=== PATIENT | female | born 1955 | race Caucasian/White ===

== ENCOUNTER 2023-05-08 10:02 | Outpatient (CLI) | payer OTHER, SELFPAY ==
--- NOTE | 2023-05-08 10:12 | ECG_ITS ---
Measurements Intervals [place] Rate: 70 P: 54 [place]: 173 QRS: 47 QRSD: 81 T: 45 QT: 365 QTc: 395 Interpretive Statements SINUS RHYTHM BASELINE ARTIFACT LOW QRS VOLTAGE IN PRECORDIAL LEADS [QRS DEFLECTION < 1.0 mV IN CHEST LEADS] BORDERLINE ECG NO PREVIOUS ECG AVAILABLE FOR COMPARISON Electronically Signed On 05-08-2023 17:02:20 CDT by Matteo De Los Santos M.D.
[2023-05-08 11:25] LABS: Anion Gap 5 mmol/L (8-16); Blood Urea Nitrogen 16 mg/dL (7-17); Calcium 9.3 mg/dL (8.4-10.2); Carbon Dioxide 31 mmol/L (22-30); Chloride 99 mmol/L (98-107); Estimated Glomerular Filt Rate > 60; Glucose 87 mg/dL (65-110); Potassium 3.6 mmol/L (3.4-5.0); Sodium 135 mmol/L (137-145)
== END 2023-05-08 10:03 | disposition home or self-care (01) ==
LOC: ANHSURGERY 10:07
PROVIDERS: Anesthesiology; PCP Internal Medicine; Visit Provider Orthopaedic Surgery
DX: I10 Essential (primary) hypertension (principal); Z01.818 Encounter for other preprocedural examination
CPT/HCPCS: 36415; 80048; 93005

== ENCOUNTER 2023-05-11 02:37 | Day surgery (SDC) | payer OTHER, SELFPAY ==
--- NOTE | 2023-05-04 10:59 | PC.NURSE ---
Report to the Outpatient Waiting Room, entrance under the green pavilion located off [facility], at time __0830 on date __05/11/23 . Planned Procedure Time: __1030 . Time changes happen often and if your time is changed the preop area will call you the afternoon before. - You and your visitor will be asked to self-screen and do not enter if you have any COVID symptoms. - A mask is optional within the hospital at this time. Patients may have clear liquids (water, carbonated beverages, clear teas, apple juice) until 3 hours prior to surgery with a maximum of 20 ounces. - No food from midnight until time of surgery - Infants may have breast milk until 4 hours before surgery, formula 6 hours prior to surgery. - Children will be allowed to drink immediately following surgery. If applicable, please bring a bottle or sippy cup to assist with drinking. Juice, water, soda, and popsicles are readily available. For infants on formula, please bring formula the day of surgery. Pacifiers are allowed. Take the following medications with a SIP of water the morning of surgery: __NONE DO NOT STOP ANY OF YOUR OTHER PRESCRIPTION MEDICATIONS PRIOR TO SURGERY ?EXCEPT THE FOLLOWING Medications to discontinue per physician ___VITAMIN B 12 HOLD 3 DAYS PRE OP.LAST DOSE 05/07/23 Please no make-up, nail luxembourgish, hairspray, perfume, deodorant, or body powder the day of surgery. No jewelry (including any body piercings) or valuables the day of surgery, leave them at home. Please take a shower or bath the night before, or the morning of, surgery with an antibacterial soap. Wear comfortable, loose fitting clothing. Children are encouraged to wear pajamas. - Jewelry must be removed prior to entering the operating room. Rings and piercings that are not removed may be cut off. - The hospital will not accept responsibility for valuables. - Please leave all valuables, including medications, at home the day of surgery. If you are going home after surgery, a licensed delivery driver/customer service must drive you home. - NO public transportation without another adult if you receive anesthesia. - We recommend that an adult stay with you for 24 hours following discharge. - We also recommend that you do not drive, make important decision, drink alcoholic beverages, or take any drugs that were not prescribed by your health care provider for at least 24 hours after your discharge time. For Pediatric surgeries, we recommend two adults accompany the child home. Follow any additional instructions given to you from your surgeon. If you or anyone in your household have experienced Covid symptoms in the past week, please notify your surgeon or the nurse liaison at the phone number below for possible testing. Telephone instructions given to ____PATIENT and asked if any additional questions and then verbalized understanding. Patient advised to call surgeon office or pre surgery nurse liaison [phone] if any additional questions.
[2023-05-04 11:07] VITALS: BMI 26.1
[2023-05-11] VITALS (9 sets, daily range): BP systolic 114–150; BP diastolic 48–73; PULSE 77–93; RESP 12–20; TEMP 36.2–37.2; O2SAT 94–99
--- NOTE | ~2023-05-11 | XR_ITS ---
EXAMINATION: XR surgery orthopedic DATE: 05/11/2023 12:50 INDICATION: ORIF left ankle fracture TECHNIQUE: 5 fluoroscopic images of the left ankle were obtained during procedure performed by Dr. Aamir wong. Radiologist was not present for the imaging or procedure. The amount of fluoroscopy time used during this procedure was 1.4 minutes. COMPARISON: 04/25/2023 FINDINGS: Interval open reduction internal fixation of the oblique fracture of the distal left fibula r metaphysis. The fracture is affixed with a lateral plate and screws including 3 longer screw spanni ng the syndesmosis into the distal tibial metaphysis. The cephalad-most syndesmotic screw spans a med ial sided butterfly fragment which appears new since the prior study. Alignment is near-anatomic with a now congruent ankle mortise. 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 Skin hermes along the lateral ankle and distal calf. IMPRESSION: 1. Near-anatomic alignment post open reduction internal fixation of a distal left fibular fracture. Reviewed, dictated and finalized at location A. IMPRESSION: 1. Near-anatomic alignment post open reduction internal fixation of a distal le ft fibular fracture.
--- NOTE | 2023-05-11 07:13 | WPDHPUPDATE1 ---
History and Physical Update Update Date/Time: 05/11/23 07:13 History and Physical has been reviewed, including an updated exam of the patient. There are NO changes in the patient's condition. Risks, benefits, and alternatives have been discussed and questions answered. Patient agrees to proceed with procedure.
[2023-05-11] MEDS: ACETAMINOPHEN 500 MG TABLET 1000 MG PO (08:46)
[2023-05-11] MEDS: LACTATED RINGERS 1,000 ML 30 ML IV CONT ×2 (08:59→12:58)
--- NOTE | 2023-05-11 09:14 | WPDANESEPPF ---
Anes - Initial Pre Proc Eval Procedure: Operation Date: 05/11/23 10:30 Proposed Procedures p Open Reduction Internal Fixation Left Ankle Fracture, Deltoid Ligament Reconstruction - Rico Goncalves MD Date/Time: 05/11/23 09:14 Surgeon: Rico Goncalves MD Pre Op Diagnosis: Lt Ankle Fx, Malunion, Ankle Deltoid Rupture Patient Data Age: 67 Gender: F Height: 1.59 m Weight: 65.8 kg Allergies Allergy/AdvReac Type Severity Reaction Status Date / Time No Known Allergies Allergy Unverified 05/11/23 08:31 Home Medications Medication Instructions Recorded Confirmed Type acetaminophen 500 mg tablet 500 mg PO Q6H PRN Pain 03/15/23 05/04/23 History (Tylenol Extra Strength) aspirin 81 mg tablet,delayed 81 mg PO DAILY 03/15/23 05/04/23 History release (Adult Aspirin Regimen) atorvastatin 40 mg tablet 40 mg PO DAILY 03/15/23 05/04/23 History hydrochlorothiazide 25 mg tablet 25 mg PO DAILY 03/15/23 05/04/23 History lisinopril 10 mg tablet 10 mg PO DAILY 03/15/23 05/04/23 History cyanocobalamin (vitamin B-12) 1,000 mcg PO DAILY 05/04/23 05/04/23 History 1,000 mcg capsule omeprazole magnesium 20 mg 20 mg PO PRN PRN Heartburn 05/04/23 05/04/23 History tablet,delayed release (Prilosec OTC) Patient hx anesthesia problems: none Family hx anesthesia problems: none Results Review: All pre-operative results and documents have been reviewed as part of the pre-operative evaluation. [facility] Past Medical History Medical History Fracture of ankle, trimalleolar, left, closed Sprain of deltoid ligament of left ankle Surgical History Surgical History H/O cervical spine surgery Hx of cholecystectomy Family History Family History Unknown Hypertension Heart disease Lung disease Cerebrovascular accident Hyperlipidemia Social History Social History Smoking status: Never smoker Alcohol intake: current Drinks per week: 5 Substance use: never Living arrangements: with family Occupation/Education: retired Gender identity (if verbalized by the patient): Female Spiritual care concerns: No Anes - Eval Final PreProcedure Day of Procedure 05/11/23 09:14 Patient weight: overweight Heart: regular rate and rhythm Lungs: clear to auscultation Airway: Mallampati scale class III and special considerations poor opening and poor extension Neurological: alert and oriented Last oral intake: >/= 8 hours ASA classification: II Emergent: no Anesthetic plan: proceed Anesthesia type and monitoring: general LMA and standard monitoring Results Review: All pre-operative results and documents have been reviewed as part of the pre-operative evaluation. Informed Consent: The patient's anesthetic plan and its attendant risks and benefits were discussed with the patient/family/POA. Questions were solicited and answers provided to the satisfaction of the patient/family/POA.
[2023-05-11] MEDS: KETOROLAC 15 MG/ML VIAL (*BKC) IV PUSH (09:47)
[2023-05-11] MEDS: ceFAZolin 2 GM/D5W 50 ML 2 GM/50 ML BAG IVPB (10:06)
[2023-05-11] MEDS: BUPIVACAINE/EPINEPHRINE 0.5% 50 ML VIAL 30 ML INFILTRATE (10:42)
--- NOTE | 2023-05-11 13:26 | W.PM.PROC2 ---
Procedure Note - Detailed Date of Procedure 05/11/23 Pre-op Diagnosis Lt Ankle Fx, Malunion, Ankle Deltoid Rupture Post-op Diagnosis Same Procedure Performed Repair left ankle fibular fracture malunion, secondary reconstruction deltoid ligament. Surgeon Rico Goncalves MD Manager Call 1st membership assistant Anesthesia General Indications 67-year-old woman who sustained a left ankle fracture that went on to develop a malunion of the fibula, lateral subluxation of the ankle mortise and widening of the medial clear space. Pain with weight-bearing activity as well as obvious deformity of the ankle. Patient presents for operative treatment. Description of Procedure After informed consent, the operative extremity was marked in the preoperative holding area. Patient received intravenous antibiotics. Patient was then taken to the operating room and underwent general anesthesia by the anesthesia team. They were positioned supine on the operating room table. A time-out was performed confirming the patient, site of the surgery, operative plan. Left lower extremity then prepped and draped in the usual sterile surgical fashion using ChloraPrep skin solution. Foot and ankle exsanguinated and a thigh tourniquet inflated to 250 mmHg. Local anesthetic with 0.5% Marcaine with epinephrine used. Longitudinal incision made over the lateral ankle distal fibula with a 15 blade knife. Hemostasis controlled with electrocautery. Full-thickness soft tissue flaps developed and the fascia was incised in line with the skin incision. Fracture of the fibula identified and confirmed with image intensification. There was good healing of the previous fracture noted. Recreation of the fracture line was done with an osteotome from distal anterior to posterior proximal. Once the distal aspect was freed up we were then able to reduce the fracture back out to length and a more medial position to reduce the ankle mortise. This was provisionally clamped checked with image intensification. Fracture reduced and held with bone-holding clamp. Image intensification confirmed reduction of the fracture and the ankle mortise. Fixation achieved with a lateral plate with unicortical screws distal to fracture and bicortical screws proximal to the fracture. Several trans syndesmosis fixation screws were placed for added stability. Good alignment and stability of the fracture noted. Image intensification used to confirm reduction of the fracture and placement of the hardware. Stress of the ankle performed with good stability of the ankle mortise in all directions. Wound thoroughly irrigated with antibiotic solution. Demineralized bone matrix allograft then used to fill in the defect in fibula where the previous fracture was. Fascia repaired with 00 Vicryl interrupted suture. Subcutaneous tissue repaired with 000 Monocryl interrupted suture and hermes. Medial side then addressed. Longitudinal incision made at the medial malleolus with 15 blade knife. Hemostasis. Deltoid ligament was noted to be intact but evidence of previous rupture from the medial malleolus and now was without tension and stability. This was freed up from medial malleolus. Internal brace was then applied with anchor in the center position medial talar dome followed by suture repair to medial malleolus with a 2nd anchor. Good repair stability noted. 2.0 mm fiber tack suture was then placed anterior and posterior to this and direct repair of the deltoid ligament performed over the internal brace. Image intensification used to confirm placement and stability. Wound thoroughly irrigated with saline. Fascia repaired with 2-0 Vicryl interrupted suture. Subcutaneous tissue. For Monocryl suture and skin repaired with hermes. Sterile dressings applied. Patient woke from anesthesia extubated taken to recovery room in stable condition. All sponge needle instrument counts correct in the case. Implants Arthrex distal fibula plate. 2.7 and 3.5 m
[2023-05-11] MEDS: oxyCODONE HCL (*CRX) 5 MG TAB IR PO (14:37)
== END 2023-05-11 15:04 | disposition home or self-care (01) ==
PROVIDERS: PCP Internal Medicine; Visit Provider Orthopaedic Surgery
PROC: (CPT 27792; principal; 2023-05-11 10:30)
DX: S82.852A Displaced trimalleolar fracture of left lower leg, initial encounter for closed fracture (principal); S93.422A Sprain of deltoid ligament of left ankle, initial encounter; W01.198A Fall on same level from slipping, tripping and stumbling with subsequent striking against other object, initial encounter; Z79.82 Long term (current) use of aspirin
CPT/HCPCS: 27792; 27698; 36415; 80048; 93005; 99199; A9270; C1713; C1769; J0690; J1100; J1170; J1885; J2405; J2704; J3010; J7120